=== PATIENT | male | born 1935 | race Caucasian/White ===

== ENCOUNTER 2019-08-13 11:13 | Inpatient (IN) | payer OTHER ==
[~2019-08-13] VITALS: Ht 180.3 cm; Wt 73.8 kg
[2019-08-13 11:14] VITALS: BP 162/70
[2019-08-13 12:05] LABS: ABSOLUTE NEUTROPHILS 5.8 thou/uL (1.4-8.2); BASOPHILS 1.1 % (0.0-2.0); EOSINOPHILS 2.8 % (0.0-3.0); HEMATOCRIT 39.4 % (42.0-52.0); HEMOGLOBIN 13.2 gm/dL (14.0-18.0); LYMPHOCYTES 18.7 % (24.0-44.0); MCH 30.8 pg (26.0-34.0); MCHC 33.4 g/dL (28.0-37.0); MCV 92.2 fL (80.0-100.0); MONOCYTES 11.3 % (1.0-8.0); PLATELET COUNT 207 thou/uL (150-400); POLYS 66.1 % (36.0-66.0); RBC 4.28 mil/uL (4.50-6.00); RDW 15.4 % (10.5-14.5); WBC 8.8 thou/uL (4.0-11.0)
[2019-08-13 12:10] LABS: CALCIUM 8.6 mg/dL (8.5-10.1); CREATININE 1.5 mg/dL (0.7-1.3); POTASSIUM 4.6 mmol/L (3.5-5.1)
[2019-08-13 12:10] LABS: URINE BILIRUBIN NEGATIVE (Negative); URINE BLOOD NEGATIVE (Negative); URINE CLARITY CLEAR; URINE COLOR YELLOW; URINE GLUCOSE-RANDOM* NEGATIVE (Negative); URINE KETONES NEGATIVE (Negative); URINE LEUKOCYTES-REFLEX NEGATIVE (Negative); URINE NITRITE-REFLEX NEGATIVE (Negative); URINE PROTEIN (DIPSTICK) NEGATIVE (Negative); URINE UROBILINOGEN 0.2 E.U./dl (0.2-1.0)
[2019-08-13 12:16] LABS: ALBUMIN 3.1 g/dL (3.4-5.0); TOTAL BILIRUBIN 0.4 mg/dL (0.2-1.0); TOTAL PROTEIN 5.8 g/dL (6.4-8.2)
--- NOTE | 2019-08-13 13:33 | NUR ---
PT IS EATING LUNCH, CALM
--- NOTE | 2019-08-13 13:37 | NUR ---
HOSPITALIST AT BEDSIDE
[2019-08-13 14:01] VITALS: BP 162/79
[2019-08-13 16:57] VITALS: BP 141/58
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
--- NOTE | 2019-08-14 04:21 | NUR ---
08-13-19 CARE TRANSFERED 1914 OBSERVED PT STANDING AT NURSING STATION DOOR, REDIRECTED PT TO DAY ROOM FOR SNACK TIME AND OBSERVED PT GAIT STEADY PT IS CURRENTLY ON FALL PRECAUTION R/T FALLING AT THE FACILITY HE CAME FROM. PT REPORTED HE WANTED HIS CANE. VSS, RR EVEN AND NONLABORED ON RA. PT DENIES SI/SH/HI/VAH AND ZERO PAIN. LATER PT REPORTED PAIN IN LEFT FOOT AND SCALED AT A 5 ON 0-10 SCALE, REASSEMENT AT A 2. ANOTHER RN SET UP A WALKER AND PRESENTED TO PT BECAME AGITAGED AND AGGRESS. I OBSERVED PT BECOMING INCREASSLING AGITAGED AND CONSULTED HCP AND RECEIVED TORB ORDERED FOR HALDOL 2MG Q2 IM AND THIS WAS DELIVERED IN LEFT DELTOID. NOTED LATER PT BECAME CALM. PT ZERO ACUTE MEDICAL DISTRESS. WILL CONTINUE TO MONITOR PER [facility] PROTOCOL.
--- NOTE | 2019-08-14 07:56 | EKG ---
[facility] Fabi Spence [facility] [place] [address] ELECTROCARDIOGRAM REPORT Name: DAVID PEDROZA Room #: 8B ADM IN M.R.#: [id number] Admission: 08/13/19 Attend Phys: Todd Green DO Discharge: Date of : 31 Report #: [id number] THIS REPORT FOR: cc: Rocio Hong MD, Malathi MD Lundgren,Fredy Matthew MD [facility] ~ THIS REPORT FOR: //name// [facility] ED Test Date: 2019-08-13 Test Time: 11:25:57 Pat Name: DAVID PEDROZA [facility] Gender: [place] Expert: HANNAH : 1935 Requested By: Edmond Hendrix Order Number: [id number] MD: Fredy Elmore Measurements Intervals Eek Rate: 45 P: 0 KS: 177 QRS: 131 QRSD: 168 T: 2 QT: 598 QTc: 518 Interpretive Statements Sinus bradycardia Right bundle branch block Abnrm T, consider ischemia, anterolateral lds No previous ECG available for comparison Electronically Signed On 08-14-2019 7:55:43 CDT by Fredy Elmore [email or web address] <ELECTRONICALLY SIGNED> By: Fredy Elmore MD, [facility] 08/14/19 0755 1125 1125 Fredy Elmore MD, [facility] /EPI
[2019-08-14 08:00] VITALS: BP 110/80
--- NOTE | 2019-08-14 08:54 | NUR ---
PT TOOK MEDS THIS AM WITHOUT ANY ISSUES. PT IS UPSET AND CRYING ABOUT HIS . PT STATED HE WAS TIRED, HIS HEAD LAYING ON THE COUCH ARM. ASSISTED PT TO HIS ROOM AND HE LAID DOWN, PUT BED ALARM ON. PT HAS STEADY GAIT, NORMALY PT USES CANE TO GET AROUND.
[2019-08-14 11:35] VITALS: BP 126/77
--- NOTE | 2019-08-14 13:42 | NUR ---
SW called and left a VM with Tammy formerly [facility] [phone] requesting a call back to complete the intake and TP
--- NOTE | 2019-08-14 16:45 | NUR ---
PT WAS COMPLIANT WITH VITAL SIGNS FOR COREG. HAVE NOT SEEN ANY INAPPROPRIATE BEHAIVOR THIS SHIFT. PT HAS BEEN COMPLIANT WITH MEDS AND VERY APPREACIATED WITH HELP.
[2019-08-14 19:37] VITALS: BP 96/43
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
--- NOTE | 2019-08-14 23:05 | NUR ---
Care assumed of patient at 1915: Patient seated in dayroom at start of shift. Patient presents with flat affect, depressed mood. Alert and oriented to person only. Confused and forgetful. Denies anxiety and depression. Denies SI/HI/AH/VH. No delusional or paranoia behaviors observed. No sexually inappropriate behaviors observed. Ambulates with walker, steady gait, good balance. Continent of bladder. Patient declined HS snack. Took HS medication whole without difficulty. Patient pleasant and cooperative. Patient has been restless about retiring to bed. Had difficulty laying down and falling to sleep originally. Appears to be laying quietly at this time. No aggression or agitation observed. Speech is occasionally disorganized and it appears he has difficulty answering complex questions. Answers yes/no questions appropriately.
[2019-08-15 08:20] VITALS: BP 156/69
--- NOTE | 2019-08-15 08:44 | NUR ---
PT ORIENTED TO SELF ONLY. PT VERY APPRECIATED WITH CARE AND HELP.
--- NOTE | 2019-08-15 08:45 | NUR ---
PT DID SAY THIS AM HE FELT GOOD AND IS ORIENTED TO PERSON ONLY, THOUGHT IT WAS AUGUST. PT STATED HIS FATHER USED TO SAY WHAT ROCK DID YOU CRAWL OUT OF.
[2019-08-15 09:18] VITALS: BP 156/69
--- NOTE | 2019-08-15 12:00 | NUR ---
ZACHARY spoke with replaced by [facility] and she stated that pt lives at [facility] with his spouse of 59 years. SW completed the intake assessment and TP. Family meeting was set up for 10:30 am 08/16/19. ZACHARY also called [facility] and spoke with their SW and she reported that they are going to take this pt back when he is ready to d/c. ZACHARY faxed updates.
--- NOTE | 2019-08-15 17:11 | NUR ---
PT HAS BEEN WANDERING AROUND UNIT WITH WALKER. PT UNABLE TO FIND ROOM. PT ENCOURAGED TO SIT IN DINING ROOM FOR DINNER.
[2019-08-15 20:17] VITALS: BP 127/55
--- NOTE | 2019-08-16 00:45 | NUR ---
Care assumed of patient at 1915: Patient seated in dayroom at start of shift. Patient appears confused of surroundings. Patient alert and oriented to person only. Patient has needed re-direction and re-orientation as often as every 3 minutes throughout the shift. Patient denied pain or discomfort. Denies SI/HI/AH/VH. Patient became increasingly confused and the night progressed. Patient started to follow this nurse about the unit. Attempted to open door to nurses station several times. Interupted patient care by entering rooms. Patient took HS medication whole without difficulty. Ate 100% HS snack. Patient was shown to his bathroom and room several times. Nurse assisted patient to bed several times. Patient not able to lay down and would seek out this nurse so we could go home. Needed several reminders that he is at the hospital and nursing staff are his caregivers. Patient at one point asked nurse "do your parents approve of this relationship?". Patient attempted to pat this nurse on the buttock. Stated "well aren't you going to hug and kiss me renate?". "Are you not going to lay down with me?" Due to repetitive reminders, patient became somewhat agitated and stated "why do you have to be so mean to me?" Nurse educated patient that staff was not being mean but being factual. Due to confusion and difficulty falling to sleep, DAIJA Nunes notified. Order obtained for Trazodone 50mg po qHS. First dose administered. After approximately 45 minutes, patient was able to be assisted to bed where he fell asleep without difficulty and has been resting quietly since. No aggression observed. Patient primarily very confused.
[2019-08-16 13:01] VITALS: BP 172/95
--- NOTE | 2019-08-16 13:29 | NUR ---
ASSUMED CARE AT 0700 THIS MORNING. PT. ORIENTED TO SELF ONLY. HE REMAINS VERY CONFUSED. HE TOOK IS MEDICATIONS WITHOUT DIFFICULTIES. HE CANNOT FIND HIS ROOM REPEATEDLY AND HAS TO BE SHOWN TO HIS ROOM. HE HAS BEEN CALM THIS SHIFT.
[2019-08-16 15:38] VITALS: BP 130/69
[2019-08-16 16:20] VITALS: BP 172/95
[2019-08-16 19:22] VITALS: BP 112/45
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
--- NOTE | 2019-08-17 06:49 | NUR ---
PATIENT STOOD UP FROM DINING ROOM TABLE WHERE HE WAS SITTING DRINKING HIS COFFEE. HE WALKED OVER TO THIS NURSE AND TRIED BRUSHING UP AGAINST ME FROM THE SIDE AND TRYING TO PUT HIS ARM AROUND ME. HE LOOKED AT ME AND SAID"I LOVE YOU." I PUSHED HIM AWAY AND EXPLAINED THAT HE IS TOO CLOSE. WHEN I LOOKED DOWN HE HAD HIS GENITALS OUTSIDE HIS BLUE SCRUBS FONDLING THEM. I REDIRECTED HIM AWAY FROM OTHER PATIENTS TO BACK OF DINING ROOM AND TOLD HIM TO PUT HIS GENITALS BACK IN HIS PANTS. HE REFUSED. I WENT TO GET GLOVES AND HELP TO GET HIM BACK TO HIS ROOM. WHEN I GOT BACK TO HIM WITHIN 45 SECONDS, HE HAD PUT HIS GENITALS BACK IN HIS PANTS. PATIENT IS NOW PACING IN THE DINING ROOM AND DRINKING HIS COFFEE.
[2019-08-17 07:15] VITALS: BP 138/74
--- NOTE | 2019-08-17 10:45 | NUR ---
RESTLESS SO FAR THIS AM WILL SIT BRIEFLY IN DAYROOM WITH PEERS BEFORE GETTING UP AND GOING BACK TO ROOM-STAYS IN ROOM FOR 5-10 MINUTES AND COMES BACK TO DAYROOM-ANXIOUS FACIAL EXPRESSING AND MANNERISMS,WRINGING HANDS. SEEKS OUT NURSING STAFF FREQUENTLY FOR REASSURANCE,REDIRECTION "I DON'T KNOW WHAT TO DO" OR "IDON'T KNOW WHAT IS GOING ON" DENIES C/O PAIN/DISCOMFORT. DENIES SI/SH/HI. SOME MILD FLIRTACIOUS BEHAVIORS WITH PRISON WARDEN "COME BACK SOON I WILL MISS YOU HE IS RUBBING HER BACK"AMBULATING IN HALLWAYS WITH USE OF ROLLER WALKER-GAIT SLOW BUT STEADY WITH ASSISITVE DEVICE. ORIENTED TO NAME ONLY. HAS BEEN CONTINENT SO FAR THIS SHIFT.
--- NOTE | 2019-08-17 13:54 | NUR ---
ZACHARY faxed updates to Lexa Winslow and completed the DA 124 C. Pt does not need a level II screen due to his dementia DX.
--- NOTE | 2019-08-17 14:32 | NUR ---
During afternoon recreation therapy group Mike was seated near this check writer salesperson and was observed to be crying. He was offered tissues which he took. Throughout group he continued to cry and frequently mumble under his breath, "why is no one helping me? Everyone else is getting help." When oriented to situation and reminded that a game was being played and that all the other patients were participants, Bienvenido stated, "well I might as well shoot myself. No one wants to help me." He was again oriented and stated, "I should just commit suicide. I could just jump off of a bridge." Nursing staff were notified of situation.
--- NOTE | 2019-08-17 15:09 | NUR ---
WHILE SITTING IN GROUP WITH RT STATED "I WANT TO SHOOT MYSELF-THEN STATED "OR JUMP OFF A BRIDGE" STATES "EVERYBODY ELSE GETS HELP BUT ME"HAS CONTINUED TO FREQUENTLY SEEK OUT STAFF FOR REDIRECTION/REASSURANCE. APPEARS TO CALM AND BRIGHTEN WHEN STAFF IS ENGAGED 1;1 WITH HIM.
[2019-08-17 20:00] VITALS: BP 121/54
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
[2019-08-18 07:49] VITALS: BP 132/67
[2019-08-18 09:50] VITALS: BP 132/67
--- NOTE | 2019-08-18 12:27 | NUR ---
1150 RESUMMED CARE FROM OVERNIGHT SHIFT THIS AM, PATIENT IN DAY ROOM QUIET CALM. PATIENT ATE BREAKFAST TOOK MEDICATION WITHOUT INCIDENCE, ABDOMEN SOFT ROUND BOWEL SOUNDS PRESENT. PATIENTS LUNGS CLEAR PATIENT DENIES SI/HI/AH/VH AT PRESENT. PATIENT CALM COOPERATIVE WALKING HALLS WITH WALKER PATIENT ORIENTED TIMES 2. WILL CONTINUE TO MONITOR PATIENT FOR SAFETY AND BEHAVIORS.
--- NOTE | 2019-08-19 03:37 | NUR ---
Assumed care on 08/18/19 @ 1915, ambulating throughout the halls and the day room as if lost. Needs direction to return to the day room when he is ambulating the halls, states, Where do I go?. Pleased with one on one discussion during assessment. A&Ox1 to person only. Responds to other orientation questions, with I can't remember.
[2019-08-19 04:18] VITALS: BP 132/54
[2019-08-19 08:56] VITALS: BP 141/71
--- NOTE | 2019-08-19 10:49 | NUR ---
ANXIOUS AND IRRITABLE THIS AM-PACING IN HALLWAYS-GOING INTO PEERS ROOMS AND BECOMES AGITATED/ANGRY WITH ATTEMPTS TO REDIRECT-YELLING LOUDLY AT THIS NURSE "GET OUT OF MY HOUSE" CONVERSATION RAMBLING,DISORGANIZED-INCOHERENT AT TIMES-LABILE MMOD WHILE SITTING IN DAYRROM BEGAN TO CRY LOUDLY AND WHEN QUESTIONED STATES "I WISH I WAS " "I WISH I HAD NVER COME HERE" DENIES ACTIVE PLAN OR INTENT TO HURT SELF. GAIT STEADY WITH USE OF ROLLER WALKER-VS STABLE-APPETITE GOOD. ORIENTED TO NAME ONLY. DENIES PAIN/DISCOMFORT.
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
[2019-08-19 20:05] VITALS: BP 149/58
--- NOTE | 2019-08-20 01:11 | NUR ---
Assumed care on 08/19/19 @ 19:15, ambulating aimlessly throughout the mileu, confused and entering rooms that are not his own. Resistant to redirection. Labile affect noted, becomes agitated when shown where he needs to go or where is not allowed to go. Cooperated with assessment, HRRR, Lungs CTA, ABD N x 4 Q. In bed at this writing, respirations even and unlabored, no distress noted.
[2019-08-20 01:23] VITALS: BP 149/58
--- NOTE | 2019-08-20 06:36 | NUR ---
Slept well for a total of 7.8 hours sleep.
[2019-08-20 07:45] VITALS: BP 147/68
[2019-08-20 09:50] VITALS: BP 147/68
--- NOTE | 2019-08-20 11:14 | NUR ---
1025 RESUMMED CARE FROM OVERNIGHT SHIFT THIS AM, PATIENT IN DAY ROOM SITTING WAITING FOR BREAKFAST, PATIENT ATE BREAKFAST AND TOOK MEDICATION WITHOUT INCIDENCE. PATIENT DENIES SI/HI/AH/VH AT PRESENT, PATIENTS ABDOMEN SOFT ROUND BOWEL SOUNDS PRESENT LUNGS CLEAR. PATIENT HAS SOME CONFUSION AND IS FORGETFUL AT TIMES. PATIENT HAS NOT DISPLAYED ANY BEHAVIORS AT PRESENT WILL CONTINUE TO MONITOR PATIENT FOR BEHAVIORS AND SAFETY.
--- NOTE | 2019-08-20 12:50 | NUR ---
RT Progress Note- Mike is present in the milieu however is not active in participation d/t cognitive deficits and lack of orientation. Mike is frequently tearful, expressing worry about where his and children are. He is unable to understand present situation and therefore struggles to remain focused in groups.
[2019-08-20 20:13] VITALS: BP 133/57
--- NOTE | 2019-08-21 00:58 | NUR ---
Assumed care on 08/20/19 @ 19:15, ambulating throughout the mileu with a steady gait, using a walker, Vidal score of 30. Confusion and forgetful noted. Cooperated with assessment, HRRR Lungs CTA, ABD N bowel sounds over a round soft abdomen. Continent with a BM reported yesterday. A&Ox1 to person only. Looks for his , and thinks female staff are his . Speach is mumbled and confused. Denies Depression, Anxiety and Hallucinations (A & V). Reports back pain of 5/10. Tylenol 650 provided @ 2100 for back pain.
--- NOTE | 2019-08-21 01:29 | NUR ---
@ 2230 patient getting out of bed, toileted and combatitive with care. Returned to bed. Hateful speach, cursing at staff. Haldol 5mg and Lorazepam 1 mg IM given for agitation. Tolerated well, resting in bed and agitation and aimless wandering discontinued. In bed at this time, eyes closed, respirations even and unlabored.
[2019-08-21 01:36] VITALS: BP 133/57
--- NOTE | 2019-08-21 06:34 | NUR ---
SLEPT 4.4 HOURS OVERNIGHT
--- NOTE | 2019-08-21 09:16 | NUR ---
PATIENT CARE ASSUMED AT 0700 - PATIENT ASLEEP IN PATRICIA CHAIR IN DINING [place] ON ARRIVAL ON UNIT. PATIENT VERY SEDATED AND DIFFICULT TO AROUSE. TOOK MEDICATIONS WITH APPLESAUCE BUT CHOSE NOT TO GIVE SEROQUEL AT THIS TIME DUE TO INABILITY TO AROUSE PATIENT. PATIENT ASSISTED WITH BREAKFAST BUT ATE VERY SLOWLY AND NEEDED TO BE MONITORED FOR FEAR OF CHOIING. ADVISED HAD HALDOL AND ATIVAN IM LATE LAST EVENING - CURRENTLY ASLEEP IN [place] [place]
[2019-08-21 09:29] VITALS: BP 147/73
--- NOTE | 2019-08-21 09:32 | NUR ---
ZACHARY faxed updated notes to Lexa rodriguez and then called ans spoke with Emeterio in admissions to provide an update. Pt is not ready to d/c due to aggression and using IMs.
--- NOTE | 2019-08-21 16:16 | NUR ---
PATIENT BLOOD PRESSURE 120/56 WHEN TAKEN AT 1600 PRIOR TO ADMINISTRATION OF COREG MEDICATIONS. TOLERATED WELL ALONG WITH 50G OF SEROQUEL GIVEN AT SAME TIME - REMINS IN WHEELCHAIR MANUVERING AROUND TO PREVENT FALL DUE TO UNSTEADINESS TODAY WHEN AMBULATING ALONE.
[2019-08-21 19:53] VITALS: BP 136/80
--- NOTE | 2019-08-21 23:19 | NUR ---
Care assumed of patient at 1915: Patient seated in w/c in hallway at start of shift. Patient restless and fidgeting. Patient alert and oriented to person only. Confused and forgetful. Difficulty answering yes/no questions. Denies pain and discomfort. No s/s of pain and discomfort observed. Patient denies SI/HI/AH/VH. Denies anxiety and depression. Unknown if patient understands questions asked. Patient took HS medication whole without difficulty. Declined HS snack. Patient easily irritable and agitated when asked questions. Patient was able to be assisted to bed and was able to sleep for approximately 1 hour. Patient then attempting to get out of bed independently. Assisted back to bed on 3 different occasions. Offered drink, toileting, blankets, re-positioning. Patient having unsteady gait and poor balance. Patient assisted to recliner and taken to the dayroom in order to provide increased staff supervision. Patient yelling and cursing at staff at times. No physical aggression or sexually inappropriate behaviors observed. No obvious delusional or paranoia behaviors observed. Patient seated in dayroom at this time.
[2019-08-22 08:59] VITALS: BP 133/73
--- NOTE | 2019-08-22 10:25 | NUR ---
Assumed care 0700. Mentioned in tearful way that he wanted to use a gun on himself. He would not elaborate. Later when being toileted stated he was upset that people were telling him what to do.
--- NOTE | 2019-08-22 19:18 | NUR ---
Care of patient assumed at 1915. Patient is sitting in wheel chair in the day room. Lap mitzi in place to prevent falls. Patient is restless, and it is difficult to get his attention. Once attention is obtained, patient is oriented to self only (assessed by his response to his name). Unable to assess orientation further as patient just mumbles unintelligibly. Does shake his head indicating in the negative when asked if he had any pain. HS, LS, BS all WNL. Patient is compliant with HS meds, though they had to be spoon fed to him. Assisted to toilet and then to bed at 2119.
[2019-08-22 19:35] VITALS: BP 105/62
[2019-08-23 07:28] VITALS: BP 130/63
--- NOTE | 2019-08-23 07:42 | NUR ---
Nutrition: Assessing for LOS on [facility] unit. Pt not interviewed given condition. Here for dementia w/ behavioral disturbance. Noted to be alert to self only, difficult to answer yes/no questions, often unintelligible mumbling per notes. Based on chart review, pt is on a regular diet and appetite stable. He is eating very well with 9-day meal average at 92% from 08/13 - 08/21. 17 out of the last 23 meals have a 100% meal completion rate. On every other day Lasix, a scheduled bowel regimen, and daily potassium chloride. Provider notes indicate evidence of significant delusional thought. Deemed low nutrition risk, no nutrition interventions indicated at this time.
--- NOTE | 2019-08-23 09:09 | NUR ---
0700 ASSUMED CARE OF PATIENT, PATIENT ASLEEP IN WC IN DAYROOM. 0820 PATIENT AT TABLE EATING BREAKFAST, ATE 100% OF MEAL. NO C/O PAIN, DENIES SI/HI, NO GOALS/CONCERNS VOICED. MEDICATIONS TAKEN WHOLE WITHOUT DIFFICULTY. DENIES NEEDS. VS STABLE
--- NOTE | 2019-08-23 13:57 | NUR ---
ZACHARY faxed updates to Radha Winslow
--- NOTE | 2019-08-23 14:36 | NUR ---
SW completed chart review and he is responding well to treatment. D/C is likely next week.
--- NOTE | 2019-08-23 16:36 | NUR ---
PATIENT OBSERVED WALKING WITH STAFF IN [place] USING WALKER THIS AFTERNOON. PATIENT DOES NOT WANT TO STOP WALKING AND ENJOYS BEING UP. PATIENT RICHARD; AND COOPERATIVE. 1640 PATIENT SITTING NEAR STAFF WITH CHAIR ALARM IN PLACE. PATIENT UP WITH WALKER TO WALK IN [place] PATIENT PASSES OTHER PATIENTS SMILING. ASSIST X 1 WITH AMBULATION NEEDED PATIENT HAS A UNSTEADY GAIT. WILL CONTINUE TO OBSERVE
--- NOTE | 2019-08-23 19:21 | NUR ---
Care of patient assumed at 1915. Patient is sitting in wheel chair in day room. Mumbled responses to questions. Will not make eye contact. A/O to self only. Denies pain. HS, LS, BS WNL. Patient is able to remove lap mitzi, and get up out of wheel chair. Patient is unredirectable, refusing to sit down. This nurse convinces patient to ambulate in the hallway with a walker. Patient does well ambulating, then is assisted to toilet. Patient becomes tearful after toileting, asking for his and siblings. Explained to patient that he is in a hospital and his family is not here. Patient lays in bed and takes HS meds withoiut issue.
[2019-08-23 19:58] VITALS: BP 139/74
[2019-08-24 09:01] VITALS: BP 131/70
--- NOTE | 2019-08-24 11:54 | NUR ---
Assumed care 0700. te breakfast. Up using walker. Needs an occasional escort with walker. One point was terful. Would not tell nurse why he was tearful Mentioned something about his family, missing them.
[2019-08-24 20:20] VITALS: BP 111/47
--- NOTE | 2019-08-25 00:24 | NUR ---
Care of patient assumed at 1915. Patient is walking the halls, going in and out of other's rooms. Patient is redirected and taken to his room. Copoerates with assessment, though many responses to questions were nonsensical. Oriented to self only. Denies pain. HS, LS, BS all WNL. Patient is compliant with HS meds. Returns to walking the hallways, intermittently putting himself on the floor and going in and out of rooms.
[2019-08-25 06:45] LABS: CREATININE 1.9 mg/dL (0.7-1.3); POTASSIUM 4.2 mmol/L (3.5-5.1)
--- NOTE | 2019-08-25 10:12 | NUR ---
0700 ASSUMED CARE OF PATIENT, PATIENT AWAKE IN ROOM AT THAT TIME. PATIENT TO DAYROOM AT 0730 SITTS AT TABLE FOR BREAKFAST. PATIENT ATE 100% OF MEAL. NO C/O PAIN. MEDICATION TAKEN WHOLE WITHOUT DIFFICULTY. PATIENT IS CALM AND COOPERATIVE. PATIENT IS SOFT SPOKEN WITH NO BEHAVIORS NOTED AT THAT TIME. NO C/O PAIN, DENIES NEEDS. WILL CONTINUE TO OBSERVE.
[2019-08-25 13:23] VITALS: BP 125/66
[2019-08-25 19:52] VITALS: BP 95/62
[2019-08-25 20:27] LABS: URINE BILIRUBIN NEGATIVE (Negative); URINE BLOOD NEGATIVE (Negative); URINE CLARITY CLEAR; URINE COLOR YELLOW; URINE GLUCOSE-RANDOM* NEGATIVE (Negative); URINE KETONES NEGATIVE (Negative); URINE LEUKOCYTES-REFLEX NEGATIVE (Negative); URINE NITRITE-REFLEX NEGATIVE (Negative); URINE PROTEIN (DIPSTICK) NEGATIVE (Negative); URINE SPECIFIC GRAVITY 1.025 (1.005-1.035); URINE UROBILINOGEN 0.2 E.U./dl (0.2-1.0)
--- NOTE | 2019-08-26 03:41 | NUR ---
patient aox2 confused and forgetful. patient calm and cooperative with care and meds. patient had frequency urinating this shift , patient denied pain or discomfort. ua collected on day shift.patient encouraged fluids. patient in bed asleep at this time breathing regular and unlaboured.
[2019-08-26 06:31] LABS: HEMATOCRIT 35.6 % (42.0-52.0); HEMOGLOBIN 12.1 gm/dL (14.0-18.0); MCH 31.2 pg (26.0-34.0); MCHC 33.9 g/dL (28.0-37.0); MCV 92.1 fL (80.0-100.0); RBC 3.87 mil/uL (4.50-6.00); RDW 15.5 % (10.5-14.5); WBC 7.5 thou/uL (4.0-11.0)
[2019-08-26 06:40] LABS: CALCIUM 7.9 mg/dL (8.5-10.1); CREATININE 1.8 mg/dL (0.7-1.3); MAGNESIUM 2.2 mg/dL (1.8-2.4); POTASSIUM 4.3 mmol/L (3.5-5.1)
[2019-08-26 08:47] VITALS: BP 114/80
--- NOTE | 2019-08-26 09:30 | NUR ---
0700 ASSUMED CARE OF PATIENT, PATIENT SITTING IN DAYROOM AT THAT TIME. PATIENT AMB OUT TO DAYROOM FOR BREAKFAST. PATIENT ATE 100% OF MEAL. PATIENT PATIENT TAKES MEDICATION WHOLE WITHOUT DIFFICULTY. DR TOWNSEND HERE TO SEE PATIENT. WILL ENCOURAGE FLUIDS TODAY. PATIENT CONTINUES TO SIT IN DAYROOM QUIETLY
--- NOTE | 2019-08-26 19:21 | NUR ---
Care of patient assumed at 1915. Patient is sitting in day room in recliner. Confused and restless. Keeps taking a peer's walker. Begins walking the halls with walker. Very labile, bursting into tears sporadically. Becomes frustrated and throws walker on the floor when nobody is paying attention to him. Compliant with HS meds and lays in bed. Less than an hour later, this nurse responds to bed alarm in his room, and patient is absent. Patient is found in the anteroom of the seclulsion room with door locked. Patient states he was looking for his . Led back to his bed and assisted in laying down. Two minutes later he is walking the halls again. Patient is encouraged to sit in the day room to reduce likelihood of falling. Patient will sit for a few minutes then is up again and moving before staff can get to him. Sleeps in recliner for a shirt time, then is up and moving again.
[2019-08-26 20:00] VITALS: BP 132/59
[2019-08-27 07:46] VITALS: BP 136/84
--- NOTE | 2019-08-27 09:58 | NUR ---
0700 ASSUMED CARE OF PATIENT, PATIENT UP AMBULATING IN DAYROOM AT THAT TIME. PATIENT REFUSES TO USE WALKER. PATIENT HAD YELLOW SHIRT ON WITH YELLOW ARM BAND ON. PATIENT ATE 100% OF BREAKFAST. NO C/O PAIN. DENIED SI/HI. PATIENT SMILES AND GIGGLES AT TIMES. PATIENT EASILY REDIRECTABLE. AT TIMES PATIENT CLOSES EYES WHILE SITTING IN CHAIR. CHAIR ALERM IN PLACE WHILE SITTING. WILL CONTINUE TO OBSERVE
--- NOTE | 2019-08-27 12:52 | NUR ---
ZACHARY received a call from Aster with [employer] asking for an update on patient. She reports she continues to work remotely and can be reached at [phone].
--- NOTE | 2019-08-27 17:45 | NUR ---
JAMAL HOSE REMOVED AT THIS TIME. PATIENT IN BED RESTING AFTER DINNER. WILL CONTINUE TO OBSERVE.
[2019-08-27 19:59] VITALS: BP 116/61
[2019-08-27 22:00] VITALS: BP 116/61
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
[2019-08-28 06:07] LABS: CALCIUM 8.4 mg/dL (8.5-10.1); CREATININE 1.7 mg/dL (0.7-1.3); POTASSIUM 4.4 mmol/L (3.5-5.1)
[2019-08-28 08:53] VITALS: BP 152/68
--- NOTE | 2019-08-28 10:38 | NUR ---
0700 ASSUMED CARE OF PATIENT, PATIENT IN BED SLEEPING AT THAT TIME. PATIENT VS STABLE. JAMAL HOSE OFF AT THAT TIME. 0900 PATIENT TO DAYROOM AMB WITH STEADY GAIT. PATIENT EATING BREAKFAST WITH MIN ASSISTANCE. FLUIDS ENCOURAGED. MEDICATION TAKEN WHOLE WITHOUT DIFFICULTY. DENIES SI/HI. NO C/O PAIN. WILL CONTINUE TO OBSERVE.
--- NOTE | 2019-08-28 11:25 | NUR ---
ZACHARY called and spoke with Aster at [facility] and provided a report. D/C can be expected by the end of this week. Radha Winslow would like an incapacitation letter, DA 124 C and a neg COVID 19 test prior to D/C.
[2019-08-28 20:34] VITALS: BP 155/63
--- NOTE | 2019-08-29 04:37 | NUR ---
08-28-19 CARE TRANSFERED AT 1915 OBSERVED PT IN DAY ROOM. 1999 PT AAOX1, SKIN W/D, VSS, RR EVEN AND NONLABORED ON RA. PT DENIES PAIN AND SI/SH/HI/VAH. DURING MEDICATION ADMIN PT HAD NO DIFFICULTIES. LATER DURING REMOVAL OF JAMAL HOSE PT BECAME AGITATED AND WANTED TO KEEP JAMAL HOSE ON, PT WAS REASSURED THAT THIS WAS HCP ORDERED; PT SETTELED DOWN AND BED WAS ADJUSTED FOR COMFORT AND PT WAS RECEPITIVE TO ELEVATING LE; PT HAS PITTING EDEMA +3LLE AND +2RLE. LATER RESPONSED TO ALARM AND PT WAS UP USING TOLIET AND THEN PT RETURN TO BED AND DENIED NEEDING BED ADJUSTED. THROUGHOUT NURSING ROUNDS ZERO ACUTE EMOTIONAL OR MEDICAL DISTRESS NOTED.
--- NOTE | 2019-08-29 08:09 | NUR ---
RT Progress Note- Mike continues to be present in the milieu and attempts socialization with peers. He is not present in structured recreation groups d/t his tendancy to explore the unit and inability to focus for long periods of times. Mike has not made suicidal statements or appeared crying during RT interactions as of late, but has instead been observed trying to make jokes with peers and staff.
--- NOTE | 2019-08-29 10:38 | NUR ---
Assumed care 0700. Had no specific complaint. Had difficulty when instructed to chew his chewable calcium tablets. He did not seem to understand what chewing meant.
--- NOTE | 2019-08-29 15:23 | NUR ---
ZACHARY faxed updates to Lexa Winslow
[2019-08-29 17:13] VITALS: BP 152/71
--- NOTE | 2019-08-29 17:40 | NUR ---
Pt. oriented only to person. Looks for his family on the unit. He wanders into other patients' rooms, sometimes with walker, sometimes without it. He uses walker backwards rolling it on its wheels. He was extra hungry after lunch and was given ice cream and jello. He was a messy eater. most of the directions given by staff were not understood by patient. He was able to chew the chewable tablets but it took sometime to get him to comprehend what chewing was. He did eventually swallow his pills. Was med compliant. He does not offer conversation. What little he does say is whispered, garbled and non sensical.
--- NOTE | 2019-08-29 19:21 | NUR ---
Care of patient assumed at 1915. Patient is confused and restless. Patient is walking the halls, going in and out of others' rooms. Refuses redirection. Unable to sit still for longer than 30 seconds. Beligerent with staff. Does take HS meds, but continues to go into female rooms. After hours of redirecting patient both verbally and physically, this nurse is finally able to get him to lay down in bed at 0030.
[2019-08-29 20:32] VITALS: BP 136/62
[2019-08-30 07:53] VITALS: BP 129/79
--- NOTE | 2019-08-30 13:44 | NUR ---
Followup: eating >75% most meals and wts fluctuate up/down between 160-171 lb. Likely DC from [facility] soon. Low nutrition risk
--- NOTE | 2019-08-30 17:50 | NUR ---
Patient was incontinent in the dayroom of urine. He seems to have forgotten how to use utensils to eat. He is using his fingers at each meal to eat. Twice today he wanted towels to clean his hands then started trying to eat the wet towels and was redirected. He tends to chew his pills and not swallow them whole. His conversation is word salad--it does not make sense. At one point he was tearful but would not reveal exactly why or what triggered the tears. He did not attend groups. Oriented only to person. He keeps moving from chair to chair and it is quite difficult to keep chair alarm under him. He is compliant with JAMAL oswalde, taking meds, eating. No c/o pain. best as this magazine writer can tell patient is not suicidal/homicidal. He does pick at the air-visual hallucinations. No responding to voices noted.
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
[2019-08-30 19:36] VITALS: BP 133/84
[2019-08-31 06:38] VITALS: BP 135/67
[2019-08-31 08:00] VITALS: BP 135/67
--- NOTE | 2019-08-31 09:30 | NUR ---
Assumed care 0700. Impulsively tries to get up to walk without using walker. Has been in recliner with lap mitzi. Most of his conversation is not understandable. He keeps his eyes closed.
--- NOTE | 2019-08-31 12:52 | NUR ---
Celine faxed updates to Lexa rodriguez
--- NOTE | 2019-08-31 18:14 | NUR ---
While in dayroom most of the time keeps his eyes closed. Words are mumbled. After dinner he ws tearful but couldnot get staff to understand wht he was upset about. Note right jaime hose ws put on in the AM. the left jaime hose was put on later in the day around 1800. Staff hastried several times to elevate his legs to decrease swelling but he keeps straightening up and not reclining. Currently tries to remove his shirt. He calls out possibly various names. Will not specifiy what he is wanting. He picks at the air. He moves fingers/hands as if he working with something-an unknown device. No c/o pain voiced. Not able to delineate ny concerns or goals for the day. + for visual/tactile hallucinations.
[2019-08-31 20:01] VITALS: BP 136/92
--- NOTE | 2019-09-01 02:32 | NUR ---
Assumed care on 08/31/19 @ 19:15, seated in adolfo chair wearing lap mitzi. Tolerated assessment, HRRR, Lungs noted to have clear breath sounds bilat, ABD normoactive bowel sounds. Took meds crushed in yogart and drank 4 oz of water. Allowed silvadine to be applied to ankle. Edward hose on lower extremities. Will continue to monitor.
--- NOTE | 2019-09-01 16:45 | NUR ---
pT WAS IN THE DAY ROOM WHEN I STARTED MY TOUR OF DUTY TODAY. PT WAS LAIBLE JONATHAN, CRYING ABOUT HIS OR OTHER THINGS TO SLEEPING IN THE LOUNG CHAIR. PT WAS ENCOURAGED TO EAT, TAKE FLUIDS AND TAKE MEDICATIONS CRUSHED IN APPLE SAUCE. ON ASSESSMENT, LUNGS WERE CLEAR, X2, PEDAL PULSE WAS STRONG AND EQUAL BOWEL SOUNDS FAINT. PT HAD SMALL BM TO DAY WHEN TKEN TO THE BATHROOM. ORIENTALED X1. PT IN DAY ROOM , DID NOT PARTICIPATE IN GROUPS. STAFF CONTINUES TO OBSERVE PT.
[2019-09-01 17:10] VITALS: BP 144/89
--- NOTE | 2019-09-01 19:15 | NUR ---
Care of patient assumed at 1915. Patient is sitting in recliner in day room with lap mitzi in place. Patient is drowsy and minimally responsive. Does respond appropriately to some questions, then slips into talking to his who is not here. Oriented to self only. Denies pain. Mumbles when talking, then raises his voice calling for his . HS, LS, BS normal for patient. Per shift report LBM 09/01/19 in AM. Compliant with HS meds with much encouragement.
[2019-09-01 19:46] VITALS: BP 132/94
[2019-09-02 09:05] VITALS: BP 128/89
--- NOTE | 2019-09-02 11:05 | NUR ---
PATIENT QUIET AND REDIRECTABLE - VITALS STABLE - FED BREAKFAST. MEDICATIONS GIVEN IN YOGURT AND TOLERATED WELL. CONFUSED NOT RESPONSIVE TO QUESTIONS ADDRESSED TO HIM. CALM THIS MORNING BUT APPEARED TIRED. MONITORED IN PATRICIA CHAIR WIHT LAP GARCIA IN PLACE. UNSTEADY IF UP. NO AGITATION NOTED.
[2019-09-02 19:05] VITALS: BP 150/86
--- NOTE | 2019-09-02 19:18 | NUR ---
Care of patient assumed at 1915. Patient is asleep in a recliner in the day room. Difficult to arouse, but able to gain medication compliance with meds placed in pudding (not crushed). Patient responds in what is taken to be the negative when asked about pain. Unable to discern other answers to assessment questions. After administering meds, patient is assisted to the toilet, and then to bed.
[2019-09-03 07:46] VITALS: BP 109/61
[2019-09-03 08:20] VITALS: BP 109/61
--- NOTE | 2019-09-03 08:41 | NUR ---
PT SITTING OUT IN DINING ROOM PT EYES CLOSED. PT ABLE TO SAY A FEW WORDS. PT SPIT OUT K PILL, CRUSHED SEROQUEL AND PT TOOK WITH PUDDING. PT LUNGS CLEAR. PT IN RECLINER WITH JUAN M ZELAYA.
--- NOTE | 2019-09-03 15:59 | NUR ---
Pt is unable to participate in SW groups due to behaviors
--- NOTE | 2019-09-03 19:15 | NUR ---
Care of patient assumed at 1915. Patient is dozing in a recliner in the day room. Wakes easily to verbal cues, but remains drowsy with eyes hooded. Oriented to self only. Mumbles in response to assessment questions. Compliant with HS meds crushed and mixed in pudding. Remains in recliner in day room for a few hours, eyes closed but picking at the air as if trying to pull threads. Taken to toilet then to bed at 2300.
[2019-09-03 19:51] VITALS: BP 139/69
[2019-09-04 08:30] VITALS: BP 91/45
[2019-09-04 08:36] VITALS: BP 91/45
--- NOTE | 2019-09-04 09:07 | NUR ---
ZACHARY spoke with keely at [facility] to confirm the d/c plans for tomorrow. They will provide transportation and this worker asked for 11AM. Awaiting a call back for confirmation. ZACHARY then faxed the DA 124 C, COVID 19 neg trest results and 2 days of updated notes. ZACHARY also reported that this pt might qualify for hospice services and that this would be initaited from the hospital on behalf of the pt. ZACHARY did report that the family has not been consulted yet but will be today and they will chose from [facility].
--- NOTE | 2019-09-04 12:04 | NUR ---
CELINE called and spoke with Tammy about hospice services. She agreed to have [facility]. CELINE faxed the referral to [facility]. Celine also reported that d/c will be on Tue and Lexa rodriguez will olive picker at 10:30 am on 09/04.
--- NOTE | 2019-09-04 12:10 | NUR ---
RT Progress Note- Bienvenido remains present in the milieu each day, but has not been an active participant in groups d/t cognition. He is tearful at times when he does not understand the situation or task at hand and is frequently looking for his .
--- NOTE | 2019-09-04 13:19 | NUR ---
ZACHARY spoke with Mark Ferrari RN for [employer] [facility] and she will be out tomorrow at 9am to complete this pt's intake assessment. Zachary added Mark as a designated visitor.
[2019-09-04 13:20] VITALS: BP 123/43
--- NOTE | 2019-09-04 14:54 | NUR ---
[facility] called and family has decided they do not want hospice services at this time
--- NOTE | 2019-09-04 17:13 | NUR ---
PT HAS BEEN RESTING MOST OF DAY IN CHAIR. PT DID TRY AND WALK TODAY IN DINING ROOM. PT SLOW TO AMBULATE, THEN GETS FASTER OVER A PERIOD OF TIME. PT DID TAKE MEDS TODAY, PT LIKES ORANGE SHERBERT. PT ATE A FULL SHERBERT WITH AFTERNOON MEDS.
--- NOTE | 2019-09-04 18:01 | NUR ---
PT STARTED CRYING AFTER DINNER. APPLIED JAMAL HOSE AROUND 1600. PT RT LE IS MORE SWOLLEN THAN LEFT.
[2019-09-04 20:09] VITALS: BP 145/87
--- NOTE | 2019-09-04 23:35 | NUR ---
Pt oriented to person, confused and forgetful. Pt was alert and sitting on a adolfo chair in the dayroom at time of assessment. Pt was pleasant and cooperative. Pt denies anxiety and/or depression. Pt denies SI/HI/VH/AH. Pt took meds crushed in orange sherbet. Pt had evening snacks. Pt currently in the room sleeping. Fall precaution in place. Will continue to monitor.
[2019-09-05 07:32] VITALS: BP 127/71
--- NOTE | 2019-09-05 09:03 | NUR ---
ZACHARY made packet and left it on the chart. ZACHARY faxed the d/c orders and summary including the phuong covid 19 test, letter of incapacitation, and DA 124 C to Lexa Winslow. Zachary reported this to nursing.
[2019-09-05] MEDS ORDERED: CARDIZEM CD120 MG PO (09:15)
[2019-09-05] MEDS ORDERED: DEPAKOTE SPRIN125 MG PO ×2 (09:16)
[2019-09-05] MEDS ORDERED: SEROQUEL 100 M100 M1 PO (09:17)
[2019-09-05] MEDS ORDERED: CALTRATE-600 W1 EACH PO (09:18)
[2019-09-05] MEDS ORDERED: SEROQUEL 25 MG25 MG PO (09:18)
[2019-09-05] MEDS ORDERED: COLACE100 MG PO (09:19)
[2019-09-05] MEDS ORDERED: LEVOTHYROXINE88 MCG PO (09:20)
[2019-09-05] MEDS ORDERED: SSD CREAM 1% 5050 GM TOP (09:25)
[2019-09-05 10:09] VITALS: BP 127/71
--- NOTE | 2019-09-05 10:41 | NUR ---
PATIENT WAS UP IN A RECLINER IN DAYROOM WHEN CARE ASSUMED. MORNING MEDICATION CRUSHED IN SHERBERT ICECREAM GIVEN, WELL TOLERATED. PATIENT IS ABLE TO FEED SELF, CONSUMED 100% BREAKFAST. PATIENT IS DISCHARGED TO [facility] TODAY BY DR. YANG. PATIENT IS FORGETFUL, CONFUSED, DENIES SUICIDAL IDEATION, NOT ABLE TO APPROPRIATELY RESPOND TO FURTHER ASSESSMENT QUESTIONS. PATIENT IS TOILETED BY STAFF, CLEAN, DRESSED, JAMAL HOSE IN PLACE. REPORT CALLED TO NURSE (DORETHA), AWAITING TRANSPORTATION TO PICK PATIENT UP. WILL MONITOR FOR SAFETY.
--- NOTE | 2019-09-11 09:00 | NUR ---
ZACHARY and Dr green spoke with pt's [facility] Tammy and she requested a letter of incapacitation. Dr Green provided this and ZACHARY mailed it to [address] [place], [place] [id number] and scanned a copy.
[2019-12-27] MEDS ORDERED: DILTIAZEM ER90 M1 PO (19:33)
[2019-12-27] MEDS ORDERED: VITAMIN D31250 MC1 PO (19:34)
[2019-12-27] MEDS ORDERED: TYLENOL325 MG PO (19:34)
[2019-12-27] MEDS ORDERED: CEPACOL SORE T1 EACH PO (19:35)
[2019-12-27] MEDS ORDERED: MILK OF MA400 MG/5 M PO (19:35)
[2019-12-27] MEDS ORDERED: MAALOX ADVANCE355 ML PO (19:35)
[2019-12-27] MEDS ORDERED: MUSCLE RUB CRE113 G1 TOP (19:36)
[2019-12-27] MEDS ORDERED: SSD25 GM TOP (19:36)
[2019-12-27] MEDS ORDERED: ZOFRAN ODT4 MG PO (19:36)
== END 2019-09-05 10:30 | DRG 57 ==
LOC: ER 11:13 → SBH 13:34 → EROBS 13:34 → SBH 13:34
PROVIDERS: Emergency Medicine; Internal Medicine; ADMIT Psychiatry & Neurology Psychiatry; ATTEND Psychiatry & Neurology Psychiatry
DX: G30.9 Alzheimer's disease, unspecified (principal); F01.51 Vascular dementia, unspecified severity, with behavioral disturbance; N17.9 Acute kidney failure, unspecified; N18.3 Chronic kidney disease, stage 3 (moderate); I42.9 Cardiomyopathy, unspecified; I13.0 Hypertensive heart and chronic kidney disease with heart failure and stage 1 through stage 4 chronic kidney disease, or unspecified chronic kidney disease; I43 Cardiomyopathy in diseases classified elsewhere; I48.20 Chronic atrial fibrillation, unspecified; I50.22 Chronic systolic (congestive) heart failure; F02.81 Dementia in other diseases classified elsewhere, unspecified severity, with behavioral disturbance; E03.9 Hypothyroidism, unspecified; I48.0 Paroxysmal atrial fibrillation; F32.9 Major depressive disorder, single episode, unspecified; S90.512A Abrasion, left ankle, initial encounter; X58.XXXA Exposure to other specified factors, initial encounter; Y93.89 Activity, other specified; Y99.8 Other external cause status; Y92.89 Other specified places as the place of occurrence of the external cause; Z85.46 Personal history of malignant neoplasm of prostate; Z88.8 Allergy status to other drugs, medicaments and biological substances; Z03.818 Encounter for observation for suspected exposure to other biological agents ruled out
CPT/HCPCS: 10880